=== PATIENT | male | born 1945 | race Caucasian/White ===

== ENCOUNTER → 2017-04-24 | Outpatient (CLI) | payer MEDICARE, OTHER ==
[~2017-04-24] MED LIST: ASPI81CH CHEW; ATEN100T PO; ATOR20TA15 PO; LISI30TA4 PO; TAMS0.4C4 PO
[2017-04-24 12:06] LABS: AUTOMATED NEUTROPHIL # 3.5 TH/MM3 (1.8-7.7); BASOPHIL % 0.8 % (0.0-2.0); EOSINOPHIL # 0.2 TH/MM3 (0-0.4); HEMATOCRIT 43.4 % (39.0-51.0); HEMO FLAGS DIFF FINAL; LYMPH % 20.1 % (9.0-44.0); MEAN CORPUSCULAR HEMOGLOBIN 33.1 PG (27.0-34.0); MEAN CORPUSCULAR HGB CONC 33.8 % (32.0-36.0); MONO % 8.3 % (0.0-8.0); NEUT % 67.8 % (16.0-70.0); PLATELET COUNT 176 TH/MM3 (150-450); RED BLOOD COUNT 4.43 MIL/MM3 (4.50-5.90); RED CELL DISTRIBUTION WIDTH 13.8 % (11.6-17.2); WHITE BLOOD COUNT 5.1 TH/MM3 (4.0-11.0)
[2017-04-24 12:12] LABS: APTT (PATIENT) 26.4 SEC (24.3-30.1); PROTHROMBIN TIME - PATIENT 11.2 SEC (9.8-11.6)
[2017-04-24 12:27] LABS: BICARBONATE 29.8 MEQ/L (21.0-32.0); POTASSIUM 4.4 MEQ/L (3.5-5.1)
--- NOTE | 2017-04-24 12:57 | RADRPT ---
EXAM DATE/TIME: 04/24/2017 12:25 [place] COMPARISON: No previous studies available for comparison. INDICATIONS : Evaluate for pneumonia, pneumothorax, or communicable disease. Pre op for abdominal aortic aneurysm r epair. MEDICAL HISTORY : None. SURGICAL HISTORY : None. ENCOUNTER: Initial ACUITY: 1 day PAIN SCORE: 0/10 LOCATION: chest FINDINGS: There is a focal nodular density in the right mid lung field which is indeterminate. CT of the chest may be helpful for further evaluation of this finding. Multiple old-healed right rib fractures are noted. No pulmonary edema is noted. The heart is normal in appearance. The left lung is clear. De generative changes are noted throughout the thoracic spine. CONCLUSION: 1. Focal nodular density within the right lower lung field which is indeterminate. CT of the chest would be helpful for further evaluation of this finding. 2. No acute focal alveolar consolidation or pulmonary vascular congestion. Keenan Redd MD on April 24, 2017 at 12:46 Board Certified Radiologist. This report was verified electronically.
[2017-04-24 13:46] LABS: BLOOD, URINE NEG (NEG); GLUCOSE,URINE TRACE mg/dL (NEG); KETONE, URINE TRACE mg/dL (NEG); NITRITE,URINE NEG (NEG); URINE COLOR YELLOW (YELLW/STRAW)
[2017-04-24 13:48] LABS: COMMENT (UR) CULT NOT INDICATED; CULTURE IF INDICATED CULT NOT INDICATED
--- NOTE | 2017-04-25 11:54 | EKG ---
Date Performed: 04/24/2017 Time Performed: 12:11:39 PTAGE: 71 years EKG: Sinus rhythm WITH OCCASIONAL SUPRAVENTRICULAR PREMATURE COMPLEXES BORDERLINE ECG NO PREVIOUS TRACING DOCTOR: Sam Ocampo Interpretating Date/Time 04/25/2017 11:52:36
== END ==
LOC: CPRE 11:12
PROVIDERS: ATTEND Surgery
DX: Z01.810 Encounter for preprocedural cardiovascular examination (principal); Z01.811 Encounter for preprocedural respiratory examination; Z01.812 Encounter for preprocedural laboratory examination; I71.4 Abdominal aortic aneurysm, without rupture; R94.31 Abnormal electrocardiogram [ECG] [EKG]
CPT/HCPCS: 36415; 71020; 80048; 81001; 85025; 85610; 85730; 93005

== ENCOUNTER 2017-04-28 08:00 | Inpatient (IN) | payer MEDICARE, OTHER ==
[~2017-04-28] VITALS: Ht 180.3 cm; Wt 114.0 kg
[~2017-04-28 08:00] MED LIST changes: -ASPI81CH CHEW
[2017-05-13] VITALS (11 sets, daily range): BP systolic 86–109; BP diastolic 50–60; PULSE 64–80; RESP 15–18; TEMP 97.6–98.6; O2SAT 93–97
[2017-05-13] MEDS ORDERED: HEPARIN-NS/PF INJ 1,000 ML ONE (07:11)
[2017-05-13] MEDS ORDERED: HEPARIN SODIUM - IV 10,000 UNITS/10 ML VIAL ONE ×2 (07:11→09:42)
[2017-05-13] MEDS ORDERED: PROTAMINE SULFATE 50 MG/5 ML VIAL ONE (07:11)
[2017-05-13] MEDS ORDERED: CHLORHEXIDINE GLUCONATE 2 % 1 PACK (2 CLOTHS) TOPICAL PRN (07:30)
[2017-05-13] MEDS ORDERED: METOPROLOL TARTRATE 25 MG TAB PO PRN (07:30)
[2017-05-13] MEDS ORDERED: INSULIN HUMAN REGULAR 1,000 UNITS/10 ML VIAL SQ PRN (07:30)
[2017-05-13] MEDS ORDERED: POVIDONE IODINE 5% (ANTISEPSIS KIT) 4 APPLICATIONS EACH NARE PRN (07:30)
[2017-05-13] MEDS ORDERED: LACTATED RINGER'S 1000 ML IV PRN (07:30)
[2017-05-13] MEDS ORDERED: SODIUM CHLORID 0.9% 500 ML IV PRN (07:30)
[2017-05-13] MEDS ORDERED: ASPI81CH CHEW (07:56)
[2017-05-13] MEDS ORDERED: FAMOTIDINE 20 MG/2 ML VIAL ONE (08:19)
[2017-05-13] MEDS ORDERED: RESP: ALBUTEROL 2.5 MG/IPRATROPIUM 0.5 MG NEB (PRN) ONE (08:25)
[2017-05-13] MEDS ORDERED: ACETAMINOPHEN 1000 MG/100 ML 100 ML IV ONE (08:29)
[2017-05-13] MEDS ORDERED: DEXMEDETOMIDINE HCL 200 MCG/2 ML VIAL ONE (08:30)
[2017-05-13] MEDS ORDERED: ceFAZolin 2 GM PREMIX 50 ML ONE (08:43)
--- NOTE | 2017-05-13 08:47 | HHI.HP ---
History of Present Illness Chief Complaint: AAA History of Present Illness 71 yo male with AAA, asymptomatic. Been watched for some time and now 5.2 cm. Past/Family/Social History Past Medical History alcphohl BPH back pain, chronic HTN DM XOL Past Surgical History ortho surgeries Social History nonsmoker Family History no AAA Home Medications Reported Medications Aspirin (Aspirin) 81 Mg Chew, 81 MG CHEW DAILY, TAB 0 Refills 05/13/17 Lisinopril (Lisinopril) 30 Mg Tab, 30 MG PO DAILY for Blood Pressure Management , #30 TAB 0 Refills 04/25/17 Atenolol (Atenolol) 100 Mg Tab, 100 MG PO DAILY for Blood Pressure Management, # 30 TAB 0 Refills 04/25/17 Atorvastatin (Atorvastatin) 20 Mg Tab, 20 MG PO DAILY for Cholesterol Management , #30 TAB 0 Refills 04/25/17 Tamsulosin (Tamsulosin) 0.4 Mg Cap, 0.4 MG PO HS for Manage Prostate Problems, # 30 CAP 0 Refills 04/25/17 Coded Allergies: No Known Allergies (Unverified , 05/13/17) Review of Systems Constitutional: COMPLAINS OF: Night Sweats, DENIES: Fatigue, Chills Respiratory: DENIES: Cough Cardiovascular: DENIES: Chest pain Physical Exam Vitals/I&O Date Time Temp Pulse Resp B/P (MAP) Pulse Ox O2 Delivery O2 Flow Rate FiO2 05/13/17 07:57 98.1 72 16 90/65 (73) 94 Neuro: awake, alert, VASQUES HEENT: anicteric sclera Neck: no JVD Heart: reg rate, no M Lungs: clear B Abdomen: obese, non tender Vascular: palpable femoral pulses Extremities: no C/C/E Caprini VTE Risk Assessment Caprini VTE Risk Assessment: Mod/High Risk (score >= 2) Caprini Risk Assessment Model Point Value = 1 Point Value = 2 Point Value = 3 Point Value = 5 Age 41-60 Minor surgery BMI > 25 kg/m2 Swollen legs Varicose veins or History of unexplained or recurrent spontaneous Oral contraceptives or hormone replacement Sepsis (< 1 month) Serious lung disease, including pneumonia (< 1 month) Abnormal pulmonary function Acute myocardial infarction Congestive heart failure (< 1 month) History of inflammatory bowel disease Medical patient at bed rest Age 61-74 Arthroscopic surgery Major open surgery (> 45 min) Laparoscopic surgery (> 45 min) Malignancy Confined to bed (> 72 hours) Immobilizing plaster cast Central venous access Age >= 75 History of VTE Family history of VTE Factor V Leiden Prothrombin [id number] Lupus anticoagulant Anticardiolipin antibodies Elevated serum homocysteine Heparin-induced thrombocytopenia Other congenital or acquired thrombophilia Stroke (< 1 month) Elective arthroplasty Hip, pelvis, or leg fracture Acute spinal cord injury (< 1 month) Prophylaxis Regimen Total Risk Factor Score Risk Level Prophylaxis Regimen 0-1 Low Early ambulation 2 Moderate Order ONE of the following: *Sequential Compression Device (SCD) *Heparin 5000 units SQ BID 3-4 Higher Order ONE of the following medications: *Heparin 5000 units SQ TID *Enoxaparin/Lovenox 40 mg SQ daily (WT < 150 kg, CrCl > 30 mL/min) *Enoxaparin/Lovenox 30 mg SQ daily (WT < 150 kg, CrCl > 10-29 mL/min) *Enoxaparin/Lovenox 30 mg SQ BID (WT < 150 kg, CrCl > 30 mL/min) AND/OR *Sequential Compression Device (SCD) 5 or more Highest Order ONE of the following medications: *Heparin 5000 units SQ TID (Preferred with Epidurals) *Enoxaparin/Lovenox 40 mg SQ daily (WT < 150 kg, CrCl > 30 mL/min) *Enoxaparin/Lovenox 30 mg SQ daily (WT < 150 kg, CrCl > 10-29 mL/min) *Enoxaparin/Lovenox 30 mg SQ BID (WT < 150 kg, CrCl > 30 mL/min) AND *Sequential Compression Device (SCD) Assessment and Plan Plan EVAR questions answered. to OR. Keenan Baltazar MD May 13, 2017 08:47
--- NOTE | 2017-05-13 10:37 | HHI.PR ---
Immediate Post Op Note Procedure Date: May 13, 2017 Pre Op Diagnosis: AAA Post Op Diagnosis: AAA Surgeon: Keenan Baltazar Refuge Worker(s): none Procedure: EVAR B DATA MODELING ARCHITECT Perclose Findings: successful repair of AAA + doppler signal B Complications: none Specimen(s) removed: none Estimated blood loss: 100mL Anesthesia: General Drains: None Fluids: 2100mL x'oid; UOP 275mL IVF Patient to: PACU Patient Condition: Good Implant/Devices: SEE IMPLANT LOG (if applicable) Date/Time of Procedure: SEE SURGICAL CARE RECORD Keenan Baltazar MD May 13, 2017 10:37
[2017-05-13] MEDS ORDERED: HYDROmorphone HCL 2 MG TAB PO PRN (10:45)
[2017-05-13] MEDS ORDERED: IOHEXOL 350 MG/ML 50 ML BTL (for RAD DIAG) IVCONTRAST ONE (10:51)
[2017-05-13] MEDS ORDERED: DO NOT ADM ANY ANTICOAGULANT DRUGS PRN (12:00)
[2017-05-13] MEDS ORDERED: LACTATED RINGER'S 1000 ML INJ 1,000 ML IV SCH (12:00)
[2017-05-13] MEDS ORDERED: IOHEXOL 300 MG/ML 50 ML BTL (for RAD DIAG) OTHER ONE (13:10)
[2017-05-13] MEDS ORDERED: SODIUM CHLOR 0.9% 250 ML INJ 250 ML IV ONE (13:13)
[2017-05-13] MEDS ORDERED: NEOSTIGMINE 3 MG/3 ML SYR IV ONE (13:13)
[2017-05-13] MEDS ORDERED: GLYCOPYRROLATE 1 MG/5 ML SYRINGE IV PUSH ONE (13:13)
[2017-05-13] MEDS ORDERED: LACTATED RINGER'S 1000 ML INJ 2,000 ML IV ONE (13:13)
[2017-05-13] MEDS ORDERED: ONDANSETRON HCL 4 MG/2 ML VIAL IV PUSH ONE (13:13)
[2017-05-13] MEDS ORDERED: DEXAMETHASONE SOD PHOS 4 MG/ML VIAL IV ONE (13:13)
[2017-05-13] MEDS ORDERED: LIDOCAINE HCL 1% PF 5 ML AMPULE OTHER ONE (13:13)
[2017-05-13] MEDS ORDERED: ePHEDrine/NS 25 MG/5 ML SYR IV ONE (13:13)
[2017-05-13] MEDS ORDERED: MIDAZOLAM HCL 2 MG/2 ML VIAL IV ONE (13:13)
[2017-05-13] MEDS ORDERED: SODIUM CHLORID 0.9% 500 ML INJ 500 ML IV ONE (13:13)
[2017-05-13] MEDS ORDERED: ROCURONIUM INJ 50 MG/5 ML SYRINGE IV PUSH ONE (13:13)
[2017-05-13] MEDS ORDERED: TAMSULOSIN HCL 0.4 MG CAP PO SCH (21:00)
[2017-05-14] VITALS (13 sets, daily range): BP systolic 85–107; BP diastolic 53–70; PULSE 54–74; RESP 16–18; TEMP 97.4–98.3; O2SAT 96–97
[2017-05-14 06:05] LABS: MEAN CELL VOLUME 98.5 FL (80.0-100.0); MEAN CORPUSCULAR HEMOGLOBIN 33.1 PG (27.0-34.0); MEAN CORPUSCULAR HGB CONC 33.6 % (32.0-36.0); PLATELET COUNT 131 TH/MM3 (150-450); RED BLOOD COUNT 3.76 MIL/MM3 (4.50-5.90); RED CELL DISTRIBUTION WIDTH 13.7 % (11.6-17.2); REVIEW FLAG FINAL; WHITE BLOOD COUNT 9.8 TH/MM3 (4.0-11.0)
[2017-05-14 06:32] LABS: BICARBONATE 28.1 MEQ/L (21.0-32.0)
[2017-05-14] MEDS ORDERED: ASPIRIN 81 MG CHEW TAB CHEW SCH (09:00)
[2017-05-14] MEDS ORDERED: ATORVASTATIN 20 MG TAB PO SCH (09:00)
[2017-05-14] MEDS ORDERED: LISINOPRIL 10 MG TAB PO SCH (09:00)
--- NOTE | 2017-05-14 09:36 | PD.VS.PN ---
Subjective POD #: 1 Procedure(s): EVAR Subjective/Hospital Course Pt up w/o complaints Pt denies abdominal/back pain Objective Vitals/I&O Date Time Temp Pulse Resp B/P (MAP) Pulse Ox O2 Delivery O2 Flow Rate FiO2 05/14/17 08:01 97.4 66 16 107/70 (82) 97 05/14/17 08:01 97 Room Air 05/14/17 06:00 60 05/14/17 05:00 60 05/14/17 04:00 56 05/14/17 03:19 96 Nasal Cannula 2.00 05/14/17 03:19 98.3 66 18 85/53 (64) 96 05/14/17 03:00 67 05/14/17 02:00 55 05/14/17 01:00 66 05/14/17 00:00 60 05/13/17 23:27 93 Nasal Cannula 2.00 05/13/17 23:27 97.6 64 18 109/58 (75) 93 05/13/17 23:27 93 Nasal Cannula 2.00 05/13/17 23:00 70 05/13/17 22:00 66 05/13/17 21:00 64 05/13/17 20:14 95 Nasal Cannula 2.00 05/13/17 20:14 97.8 80 16 86/50 (62) 95 05/13/17 20:14 95 Nasal Cannula 2.00 05/13/17 20:00 76 05/13/17 19:00 75 05/13/17 18:22 70 05/13/17 17:26 77 05/13/17 16:17 98.6 69 15 105/60 (75) 97 05/13/17 16:17 69 05/13/17 15:32 64 05/13/17 12:30 97.7 71 17 119/56 (77) 94 Nasal Cannula 2 05/13/17 12:14 66 17 108/60 (76) 95 Nasal Cannula 2 05/13/17 12:00 59 16 99/59 (72) 95 Nasal Cannula 2 05/13/17 11:45 68 16 94/56 (69) 95 Nasal Cannula 2 05/13/17 11:30 75 17 85/50 (62) 95 Nasal Cannula 2 05/13/17 11:15 76 15 92/50 (64) 95 Nasal Cannula 2 05/13/17 10:59 97.5 79 15 79/53 (62) 95 Nasal Cannula 2 05/14/17 05/14/17 05/14/17 07:00 15:00 23:00 Intake Total 1483 ml Output Total 1050 ml Balance 433 ml Exam: GENERAL: Afebrile 71/W/M A&OX3,NAD,GCS15 SKIN: Warm and dry/ Bilat groins w/o pain or hematoma CARDIOVASCULAR: +S1,S2 RESPIRATORY: No accessory muscle use. GASTROINTESTINAL: Abdomen soft, non-tender MUSCULOSKELETAL: No cyanosis, or edema. Pt denies abdominal pain Pt denies back pain Laboratory Laboratory Tests Test 05/14/17 04:53 White Blood Count 9.8 Red Blood Count 3.76 Hemoglobin 12.4 Hematocrit 37.0 Mean Corpuscular Volume 98.5 Mean Corpuscular Hemoglobin 33.1 Mean Corpuscular Hemoglobin Concent 33.6 Red Cell Distribution Width 13.7 Platelet Count 131 Mean Platelet Volume 8.2 Blood Urea Nitrogen 16 Creatinine 1.20 Random Glucose 167 Calcium Level 8.1 Sodium Level 136 Potassium Level 4.0 Chloride Level 101 Carbon Dioxide Level 28.1 Anion Gap 7 Estimat Glomerular Filtration Rate 60 Assessment and Plan Assessment: (1) AAA (abdominal aortic aneurysm) without rupture Plan Pt s/p EVAR- POD 1 w/o complications Pt doing well Pt eating w/o difficulty Pt voids post catheter removal w/o difficulty Pt w/o c/o pain Plan Pt clear for D/C this am Arranged post op follow up Reviewed D/C instructions w/ patient Sridevi AVILA [facility]/[place] [phone] Sridevi Dye May 14, 2017 09:36
--- NOTE | 2017-05-14 09:40 | MP ---
cc: LAURA BALTAZAR DATE OF SURGERY 05/13/17 PREOPERATIVE DIAGNOSIS Abdominal aortic aneurysm POSTOPERATIVE DIAGNOSIS Abdominal aortic aneurysm PROCEDURE Endovascular excision of abdominal aortic aneurysm ATTENDING PHYSICIAN Michel Baltazar MD ANESTHESIA General INDICATIONS Mr. Dudley is a gentleman with a 5.5 cm abdominal aortic aneurysm and needs minimal endovascular repair. After discussion with the patient of the risk and benefits, he was offered repair. PROCEDURE IN DETAIL Informed consent was obtained and the patient. He was taken to the operating room and placed supine on the operating table. An appropriate time-out was taken to ensure the patient identity, operative site and planned procedure. Two grams of Ancef were initiated prior to skin incision, will be discontinued after a single preoperative dose. Everyone in the room agreed with time-out and we proceeded. He was prepped from his nipples to his knees and a 21 gauge micropuncture needle was used to access both common femoral arteries. This was exchanged using Seldinger technique for a micropuncture sheath through which a 0.035 Storq wire was introduced. The micropuncture sheath was exchanged for a arteriotomy. A 5-Singaporean sheath which was used to dilate the skin and subcutaneous tissue and the arteriotomy. Two Perclose ProGlide sutures were inserted and placed but intact. These were used later. A short 8-Singaporean 10 cm sheath was placed on the right and an 8-Singaporean 25 cm sheath was placed on the left. The patient systemically heparinized throughout the remainder of the case. The ACT was kept greater than 250. The right hand stork wire was exchanged using a catheter for a Lunderquist wire and over the left-hand Stork wire, a marker flush straight catheter was placed. The 8-Singaporean sheath on the right was removed. Clif dilators was used to dilate the skin and subcutaneous tract and the arteriotomy. The main device was inserted which was a Cook Zenith 30-96. An interval angiogram confirmed the location of the renal arteries and device was deployed so the proximal aspect of the fabric was immediately distal to the left renal artery which is the lower renal artery. The graft was deployed down to the contralateral gate and the top cath was deployed without difficulty. A road runner wire was then placed through the marker flush catheter on the left and this was exchanged for a Cobra and then a Berenstein catheter and this was used to cannulate the gate and angiogram confirmed we were indeed in the contralateral gate and the Lunderquist wire was introduced. The marker catheter was then reintroduced and the distance between the contralateral gate and the left hypogastric was calculated and the contralateral limb which was a 16 x 90 was then inserted and deployed with sufficient overlap. The remainder of the main device was deployed. The top cath was recaptured. A marker catheter was inserted. The right hypogastric artery was identified and its lateral extension limb was placed which was a 16 x 74. A coated balloon was used to balloon the proximal and distal end as well as graft junctions and a completion angiogram showed excellent result without any evidence of a type 1 or III endoleak. Both renal arteries and both hypogastric arteries filled nicely. The wire, catheter and sheath were removed. The Perclose were tied down providing hemostasis in the groin and there were Doppler signal in the feet. The heparin was reversed with protamine. The patient was awaken from anesthesia and transferred to recovery room in stable condition. There no complications. I was present and scrubbed and performed the entire procedure. MD GRIS Jain/ /6:53 PM /9:24 AM [id number]
--- NOTE | 2017-05-14 09:45 | PD.VS.DC ---
Discharge Summary Admission Date: May 13, 2017 at 06:57 Discharge Date: May 14, 2017 Admission Diagnosis: (1) AAA (abdominal aortic aneurysm) without rupture Discharge Diagnosis: (1) AAA (abdominal aortic aneurysm) without rupture ICD Codes: I71.4 - Abdominal aortic aneurysm, without rupture (2) History of repair of aneurysm of abdominal aorta using endovascular stent graft ICD Codes: Z95.828 - Presence of other vascular implants and grafts Brief History from admission 71 yo male with a PMH of an AAA, asymptomatic AAA has been watched for some time and now 5.2 cm Procedure(s): EVAR Significant Findings GENERAL: Afebrile 71/W/M A&OX3,NAD,GCS15 SKIN: Warm and dry/ Bilat groins w/o pain or hematoma CARDIOVASCULAR: +S1,S2 RESPIRATORY: No accessory muscle use. GASTROINTESTINAL: Abdomen soft, non-tender MUSCULOSKELETAL: No cyanosis, or edema. Pt denies abdominal pain Pt denies back pain Laboratory Tests Test 05/14/17 04:53 Red Blood Count 3.76 MIL/MM3 (4.50-5.90) Hemoglobin 12.4 GM/DL (13.0-17.0) Hematocrit 37.0 % (39.0-51.0) Platelet Count 131 TH/MM3 (150-450) Random Glucose 167 MG/DL (74-106) Calcium Level 8.1 MG/DL (8.5-10.1) Estimat Glomerular Filtration Rate 60 ML/MIN (>89) Hospital Course: 71 yo male with a PMH of an AAA, asymptomatic AAA has been watched for some time and now 5.2 cm Pt s/p EVAR w/o complications Pt clear for D/C Arranged for post op f/u Allergies Coded Allergies Type Severity Reaction Last Updated Verified No Known Allergies 05/13/17 No 05/12/17 05/12/17 05/13/17 05/13/17 05/14/17 05/14/17 06:00 18:00 06:00 18:00 06:00 18:00 Intake Total 3430 ml 1483 ml Output Total 1150 ml 1050 ml Balance 2280 ml 433 ml Intake Oral 700 ml 480 ml IV Total 630 ml 1003 ml Other 2100 ml Output Urine Total 1050 ml 1050 ml Estimated Blood Loss 100 ml # Bowel Movements 0 Laboratory Tests Test 05/14/17 04:53 White Blood Count 9.8 TH/MM3 Red Blood Count 3.76 MIL/MM3 Hemoglobin 12.4 GM/DL Hematocrit 37.0 % Mean Corpuscular Volume 98.5 FL Mean Corpuscular Hemoglobin 33.1 PG Mean Corpuscular Hemoglobin Concent 33.6 % Red Cell Distribution Width 13.7 % Platelet Count 131 TH/MM3 Mean Platelet Volume 8.2 FL Blood Urea Nitrogen 16 MG/DL Creatinine 1.20 MG/DL Random Glucose 167 MG/DL Calcium Level 8.1 MG/DL Sodium Level 136 MEQ/L Potassium Level 4.0 MEQ/L Chloride Level 101 MEQ/L Carbon Dioxide Level 28.1 MEQ/L Anion Gap 7 MEQ/L Estimat Glomerular Filtration Rate 60 ML/MIN Orders Procedure Category Date Status Time Protamine Sulfate Inj MED 05/13/17 Complete (Protamine Sulfate 07:11 Heparin Inj (Heparin MED 05/13/17 Complete Inj) 07:11 Heparin-Ns/Pf Inj MED 05/13/17 Complete (Heparin-Ns/Pf Inj) 07:11 Lactated Ringer's MED 05/13/17 Complete 1000 Ml Inj (Lr 1000 M 07:30 Sodium Chlorid 0.9% MED 05/13/17 Complete 500 Ml Inj (Ns 500 M 07:30 Metoprolol Tartrate MED 05/13/17 In Process (Lopressor) 07:30 Povidone Iod 5% MED 05/13/17 In Process Antisepsis Kit 07:30 Chlorhexidine 2% MED 05/13/17 In Process Cloth (Chlorhexidine 07:30 Insulin Human Regular MED 05/13/17 In Process Inj (Novolin R Inj 07:30 Type And Screen BBK 05/13/17 Complete 07:29 Endovascular Cath CATH 05/13/17 Logged Famotidine Inj MED 05/13/17 Complete (Pepcid Inj) 08:19 Albuterol-Ipratropium MED 05/13/17 Complete Neb (Duoneb Neb) 08:25 Acetaminophen 1000 MED 05/13/17 Complete Mg/100 Ml (Ofirmev 10 08:29 Dexmedetomidine Inj MED 05/13/17 Complete (Precedex Inj) 08:30 Cefazolin 2 Gm Premix MED 05/13/17 Complete (Ancef 2 Gm Premix 08:43 Am Admit Pre Op Care [facility] 05/13/17 Complete Urinary Catheter JESSIE 05/13/17 In Process Management 09:38 Heparin Inj (Heparin MED 05/13/17 Complete Inj) 09:42 Admit To Inpatient ADMITTING 05/13/17 Transmitted Code Status CODE 05/13/17 Transmitted 10:38 Vital Signs (Adult) JESSIE 05/13/17 In Process 10:38 Voltmeter Operator / JESSIE 05/13/17 In Process Telemetry 10:38 Activity Oob Ad Collette JESSIE 05/14/17 In Process 08:00 Activity Bed Rest JESSIE 05/13/17 In Process 10:38 Precautions JESSIE 05/13/17 In Process 10:38 Diet Heart Healthy DIET 05/13/17 Transmitted Lunch Basic Metabolic Panel LAB 05/14/17 Complete (Bmp) 06:00 Cbc No Diff, Includes LAB 05/14/17 Complete Plts 06:00 Lactated Ringer's MED 05/13/17 In Process 1000 Ml Inj (Lr 1000 M 12:00 Oxycodone (Roxicodone) MED 05/13/17 In Process 10:45 Hydromorphone MED 05/13/17 In Process (Dilaudid) 10:45 Inpatient ADMITTING 05/13/17 Transmitted Certification Aspirin Chew (Aspirin MED 05/14/17 In Process Chew) 09:00 Atorvastatin (Lipitor) MED 05/14/17 In Process 09:00 Tamsulosin (Flomax) MED 05/13/17 In Process 21:00 Lisinopril (Prinivil) MED 05/14/17 In Process 09:00 Remove Urinary JESSIE 05/14/17 In Process Catheter 06:00 Iohexol 350 Inj MED 05/13/17 Complete (Omnipaque 350 Inj) 10:51 Enoxaparin Inj MED 05/14/17 In Process [facility] In Process Information 12:00 Class [facility]17 Complete MIN General/Pacu [facility] 05/13/17 Complete Post Anesthesia [facility] 05/13/17 Complete Attending Discharge DISCHARGE 05/14/17 Transmitted Order Vital Signs Date Time Temp Pulse Resp B/P (MAP) Pulse Ox O2 Delivery O2 Flow Rate FiO2 05/14/17 08:01 97.4 66 16 107/70 (82) 97 05/14/17 08:01 97 Room Air 05/14/17 06:00 60 05/14/17 05:00 60 05/14/17 04:00 56 05/14/17 03:19 96 Nasal Cannula 2.00 05/14/17 03:19 98.3 66 18 85/53 (64) 96 05/14/17 03:00 67 05/14/17 02:00 55 05/14/17 01:00 66 05/14/17 00:00 60 05/13/17 23:27 93 Nasal Cannula 2.00 05/13/17 23:27 97.6 64 18 109/58 (75) 93 05/13/17 23:27 93 Nasal Cannula 2.00 05/13/17 23:00 70 05/13/17 22:00 66 05/13/17 21:00 64 05/13/17 20:14 95 Nasal Cannula 2.00 05/13/17 20:14 97.8 80 16 86/50 (62) 95 05/13/17 20:14 95 Nasal Cannula 2.00 05/13/17 20:00 76 05/13/17 19:00 75 05/13/17 18:22 70 05/13/17 17:26 77 05/13/17 16:17 98.6 69 15 105/60 (75) 97 05/13/17 16:17 69 05/13/17 15:32 64 05/13/17 12:30 97.7 71 17 119/56 (77) 94 Nasal Cannula 2 05/13/17 12:14 66 17 108/60 (76) 95 Nasal Cannula 2 05/13/17 12:00 59 16 99/59 (72) 95 Nasal Cannula 2 05/13/17 11:45 68 16 94/56 (69) 95 Nasal Cannula 2 05/13/17 11:30 75 17 85/50 (62) 95 Nasal Cannula 2 05/13/17 11:15 76 15 92/50 (64) 95 Nasal Cannula 2 05/13/17 10:59 97.5 79 15 79/53 (62) 95 Nasal Cannula 2 05/13/17 07:57 98.1 72 16 90/65 (73) 94 Discharge Condition: Good Discharge Disposition: Discharge Home Discharge Instructions: Activities as tolerated May shower Report any new onset redness/ drainage/ swelling to bilat groin regions Report any new onset abdominal/back pain May resume a regular diet Call the office with any questions or concerns Sirdevi AVILA [facility]/[place] [phone] Any questions or concerns: Call [facility] V[facility] Surgery at [facility] [phone] Sridevi Dye May 14, 2017 09:45
[2017-05-14] MEDS ORDERED: ENOXAPARIN SODIUM 30 MG/0.3 ML SYRINGE SQ SCH (10:00)
== END 2017-05-14 11:14 | disposition home or self-care (01) | DRG 269 ==
LOC: HSDI 05-13 06:57 → HCPC 05-13 12:35
PROVIDERS: ADMIT Surgery; ATTEND Surgery
PROC: 04V03DZ Restriction of Abdominal Aorta with Intraluminal Device, Percutaneous Approach (ICD-10-PCS; principal; 2017-05-13 08:51)
DX: I71.4 Abdominal aortic aneurysm, without rupture (principal); E11.9 Type 2 diabetes mellitus without complications; I10 Essential (primary) hypertension; G89.29 Other chronic pain; N40.0 Benign prostatic hyperplasia without lower urinary tract symptoms; M54.9 Dorsalgia, unspecified
CPT/HCPCS: 75630; 80048; 85027; 86850; 86900; 86901; C1725; C1769; C1874; J0131; J0690; J1100; J1644; J1650; J2250; J2405; J2710; J2720; J3010; J7040; J7050; J7120; Q9967